=== PATIENT | male | born 1995 | race Caucasian/White ===

== ENCOUNTER → 2016-05-14 | Outpatient (CLI) | payer OTHER ==
--- NOTE | 2016-05-14 13:28 | DX ---
Chest, Two Views at 1221 hours History: Exposure to gas chemicals.. Comparison: None. Findings: Cardiac silhouette is within normal range. No evidence of interstitial lung disease or acut e infiltrates. No pneumonia, congestive heart failure, pleural effusion, or pneumothorax. Impression: No acute pulmonary disease. Findings and recommendations discussed with Dr. Ames at 1300 hour, today.
== END ==
LOC: BRMIMAGING 12:14
PROVIDERS: ATTEND Internal Medicine
DX: Z77.29 Contact with and (suspected) exposure to other hazardous substances (principal)
CPT/HCPCS: 71020-PO